=== PATIENT | male | born 1945 | race Caucasian/White ===

== ENCOUNTER 2018-01-25 07:42 | Outpatient (CLI) | payer MEDICARE, BC ==
--- NOTE | 2018-01-25 11:00 | CT ---
CT ANGIO ABDOMEN AND PELVIS AND BILATERAL LOWER EXTREMITIES WITH CONTRAST: INDICATIONS: Peripheral vascular disease with claudication. History of bilateral lower extremity stents. CORRELATION: CT angio study dated 08/28/2014. TECHNIQUE: Multiple axial tomograms obtained through the abdomen and pelvis and lower extremities following chantel ogram protocol with multiplanar reconstruction and 3D post processing. FINDINGS: The abdominal aorta shows atherosclerotic change with peripheral calcification and soft plaque periph erally. Mild ectasia. The distal abdominal aorta measures approximately 2 cm. No significant stenosis seen in the celiac artery. There is dense calcification at the origin of the superior mesenteric, with evidence of mild to moder ate stenosis. This appears to be less than 50% in diameter on the axial images. Dense calcification is seen at the origin of both renal arteries. There is evidence of significant s tenosis at the origin of both renal arteries. The degree of stenosis at both renal arteries appears greater than 50% diameter stenosis. Dense calcification at the aortic bifurcation and involving both common iliac arteries. There are bi lateral iliac artery stents, which have been placed since the prior study. Stents are patent. There is mild stenosis in the right common iliac, with some luminal narrowing within the stent, although t he degree of stenosis does not appear greater than 50%. RIGHT LOWER EXTREMITY: Significant atherosclerotic disease seen at the iliac bifurcation, involving internal and external iliacs. There is high grade stenosis in the right external iliac, just beyond its origin. Significant atherosclerotic disease is seen in the right common femoral, with evidence o f significant stenosis in the right common femoral of at least 50%. The right superficial femoral artery shows diffuse atherosclerotic change with moderate stenosis at H unter's canal. Diffuse atherosclerotic disease in the popliteal, with moderate stenosis at the joint space, nearing 50%. The popliteal trifurcates below the knee. Three vessels are seen to the ankle. LEFT LOWER EXTREMITY: Atherosclerotic disease involving the internal and external iliacs. Diffuse d isease in the external iliac with mild stenosis. Mild stenosis in the left common femoral. The left superficial femoral shows mild to moderate disease throughout, with focal stenosis at Ian 's canal, near 50% diameter. The popliteal shows moderate disease and moderate stenosis at the joint space. The popliteal trifurcates below the knee. Three vessels are seen to the ankle. SOFT TISSUES: The liver, spleen, and pancreas are unremarkable. The adrenal glands and kidneys are unremarkable. A right renal cyst is stable from prior exam. Bowel loops are unremarkable. IMPRESSION: 1. Diffuse atherosclerotic changes involving the abdominal aorta. There is evidence of significant stenosis of greater than 50% diameter, involving both proximal renal arteries. 2. The iliac stents appear patent with mild stenosis in the right iliac stent. 3. Significant stenosis in the right external iliac and right common femoral. 4. Moderate stenosis in both superficial femoral arteries, near Ian's canal. POS: OFF
== END 2018-01-25 07:43 | disposition home or self-care (01) ==
LOC: CT 07:42
PROVIDERS: ATTEND Internal Medicine Cardiovascular Disease
DX: I70.211 Atherosclerosis of native arteries of extremities with intermittent claudication, right leg (principal); I70.0 Atherosclerosis of aorta; I70.1 Atherosclerosis of renal artery; I70.8 Atherosclerosis of other arteries; I70.202 Unspecified atherosclerosis of native arteries of extremities, left leg; I70.201 Unspecified atherosclerosis of native arteries of extremities, right leg
CPT/HCPCS: 75635; 82565

== ENCOUNTER 2019-10-10 08:47 | Outpatient (CLI) | payer MEDICARE, BC ==
--- NOTE | 2019-10-10 09:55 | CT ---
CTA of the right lower extremity with IV contrast and Three-D reformatted imaging INDICATION: History of intermittent claudication of the right leg and COMPARISON: CTA of the abdomen and pelvis with bilateral lower extremity runoff dated January 25, 2018. FINDINGS: The right common iliac artery stent appears patent. There is moderate to severe narrowing involving t he origin of the right internal iliac which is stable. High-grade stenosis involving the proximal right external iliac artery is stable on image 43 of series 2. Moderate to severe calcified atheroscl erotic plaque in the right external iliac artery is stable. High-grade stenosis of the right external iliac just proximal to the femoral, image 61 of series 2 is stable. The moderate to high-gra de stenoses involving the right common femoral artery are stable. There is moderate atherosclerotic irregularity involving the right superficial femoral artery which is stable. The moderate to high-gra de stenosis involving the distal right superficial femoral artery at the level of the adductor hiatus is stable. Moderate atherosclerotic irregularity of the right popliteal artery with 50% lumina l caliber narrowing involving the proximal popliteal artery is stable. The anterior tibial artery and tibioperoneal trunk are patent proximally. There is 50% luminal caliber narrowing involving the d istal tibial peroneal trunk which is stable. There is three-vessel runoff to the level of the right ankle. There is a normal appendix in the right lower quadrant of the abdomen. There is diffuse osteop enia. There is scattered degenerative change. IMPRESSION: 1. Right common iliac artery stent appears patent. 2. Moderate to severe narrowing involving the right internal iliac artery is stable. 3. High-grade stenosis in the proximal and distal right external iliac artery is stable. 4. Multifocal moderate to severe stenoses involving the right common femoral artery is stable. 5. Moderate to high-grade stenosis involving the distal right superficial femoral artery at the level of the adductor hiatus is stable. 6. Moderate luminal caliber narrowing of the proximal right popliteal artery stable. 7. Moderate luminal caliber pleural narrowing of the distal tibial peroneal trunk is stable.
[2019-10-10] MEDS ORDERED: Iopamidol 370 76% 100 ML VIAL ONE (14:50)
== END 2019-10-10 08:48 | disposition home or self-care (01) ==
LOC: CT 08:47
PROVIDERS: ATTEND Internal Medicine Cardiovascular Disease
DX: I70.211 Atherosclerosis of native arteries of extremities with intermittent claudication, right leg (principal)
CPT/HCPCS: 82565; Q9967

== ENCOUNTER 2021-10-26 09:03 | Outpatient (CLI) | payer MEDICARE, BC | END 2021-10-26 09:04 | disposition home or self-care (01) | LOC: MRI 09:03 | PROVIDERS: ATTEND Family Medicine | DX: M48.062 Spinal stenosis, lumbar region with neurogenic claudication (principal); M47.26 Other spondylosis with radiculopathy, lumbar region | CPT/HCPCS: 72148 ==

== ENCOUNTER 2022-04-08 08:41 | Outpatient (CLI) | payer MEDICARE, BC ==
[~2022-04-08 08:41] MED LIST: Iopamidol 370 76% 100 ML VIAL ONE
== END 2022-04-08 08:42 | disposition home or self-care (01) ==
LOC: CT 08:41
PROVIDERS: ATTEND Internal Medicine Cardiovascular Disease
DX: I70.211 Atherosclerosis of native arteries of extremities with intermittent claudication, right leg (principal); N28.9 Disorder of kidney and ureter, unspecified; R59.0 Localized enlarged lymph nodes; R91.1 Solitary pulmonary nodule; I25.10 Atherosclerotic heart disease of native coronary artery without angina pectoris; I70.1 Atherosclerosis of renal artery; I70.0 Atherosclerosis of aorta; I70.8 Atherosclerosis of other arteries
CPT/HCPCS: 71275; 74175; 82565; Q9967

== ENCOUNTER 2022-04-20 10:20 | Outpatient (CLI) | payer MEDICARE, BC | END 2022-04-20 10:21 | disposition home or self-care (01) | LOC: LABBT 10:20 | PROVIDERS: ATTEND Internal Medicine Hematology & Oncology | DX: C78.1 Secondary malignant neoplasm of mediastinum (principal); C80.1 Malignant (primary) neoplasm, unspecified; Z20.822 Contact with and (suspected) exposure to COVID-19 | CPT/HCPCS: U0003; U0005 ==

== ENCOUNTER 2022-04-21 08:45 | Outpatient (CLI) | payer MEDICARE, BC | END 2022-04-21 08:46 | disposition home or self-care (01) | LOC: PET 08:45 | PROVIDERS: ATTEND Internal Medicine Hematology & Oncology | DX: C78.1 Secondary malignant neoplasm of mediastinum (principal) | CPT/HCPCS: 78815; A9552 ==

== ENCOUNTER 2022-04-25 07:56 | Day surgery (SDC) | payer MEDICARE, BC ==
[2022-04-20 14:25] VITALS: BMI 25.1
[2022-04-25 08:16] LABS: #Basophils 0.1 thou/uL (0.0-0.2); #Eosinphils 0.3 thou/uL (0.0-0.7); #Lymphocytes 1.7 thou/uL (1.20-3.40); #Monocytes 0.7 thou/uL (0.11-0.59); #Neutrophils 6.4 thou/uL (1.40-6.50); %Basophils 1.1 % (0.0-1.0); %Eosinophils 3.2 % (0.0-10.0); %Lymphocytes 18.6 % (21.0-51.0); %Monocytes 7.5 % (0.0-10.0); %Neutrophils 69.7 % (42.0-75.0); Hemoglobin 11.5 g/dL (14.0-18.0); Mean Corpuscular HGB CONC 32.2 g/dL (32.0-36.0); Mean Corpuscular Hemoglobin 26.8 pg (27.0-31.0); Mean Corpuscular Volume 83.3 fL (78.0-98.0); Mean Platelet Volume 6.4 fL (7.4-10.4); Platelet Count 390 thou/uL (130-400); RBC Distribution Width 13.9 % (11.5-14.5); White Blood Cell (WBC) Count 9.2 thou/uL (4.8-10.8)
[2022-04-25 08:27] LABS: INR-International Normal Ratio 1.1; PTT 32.4 sec (22.9-36.1); Prothrombin Time 14.1 sec (12.0-14.7)
[2022-04-25 08:39] VITALS: BP 191/101; TEMP 97.7
== END 2022-04-25 13:00 | disposition home or self-care (01) ==
LOC: CT 07:56
PROVIDERS: ATTEND Internal Medicine Hematology & Oncology
PROC: 0WBC3ZX Excision of Mediastinum, Percutaneous Approach, Diagnostic (ICD-10-PCS; principal; 2022-04-25)
DX: C7A.8 Other malignant neuroendocrine tumors (principal); I10 Essential (primary) hypertension; I25.10 Atherosclerotic heart disease of native coronary artery without angina pectoris; I73.9 Peripheral vascular disease, unspecified; E78.5 Hyperlipidemia, unspecified; N40.0 Benign prostatic hyperplasia without lower urinary tract symptoms; Z87.891 Personal history of nicotine dependence; Z79.82 Long term (current) use of aspirin; Z79.899 Other long term (current) drug therapy; Z95.5 Presence of coronary angioplasty implant and graft
CPT/HCPCS: 36415; 77002; 77012; 85025; 85610; 85730; 88305; 88313; 88333; 88341; 88342

== ENCOUNTER 2022-05-13 08:44 | Outpatient (CLI) | payer MEDICARE, BC ==
[~2022-05-13 08:44] MED LIST changes: +Gadobenate Dimeglumine 529 MG/1 ML (20ML VIAL) ONE; -Iopamidol 370 76% 100 ML VIAL ONE
== END 2022-05-13 08:45 | disposition home or self-care (01) ==
LOC: MRI 08:44
PROVIDERS: ATTEND Internal Medicine Hematology & Oncology
DX: C34.92 Malignant neoplasm of unspecified part of left bronchus or lung (principal); C78.1 Secondary malignant neoplasm of mediastinum; C79.51 Secondary malignant neoplasm of bone; I67.89 Other cerebrovascular disease; R90.89 Other abnormal findings on diagnostic imaging of central nervous system
CPT/HCPCS: 70553; A9577

== ENCOUNTER 2022-06-28 10:15 | Outpatient (CLI) | payer MEDICARE, BC | END 2022-06-28 10:16 | LOC: PET 10:15 | PROVIDERS: ATTEND Internal Medicine Hematology & Oncology | DX: C34.92 Malignant neoplasm of unspecified part of left bronchus or lung (principal); C78.1 Secondary malignant neoplasm of mediastinum | CPT/HCPCS: 78815; A9552 ==

== ENCOUNTER 2022-07-15 07:16 | Inpatient (IN) | payer MEDICARE, BC ==
[2022-07-15] MEDS ORDERED: Diltiazem 125 MG/25 ML ONE (07:34)
[2022-07-15] MEDS ORDERED: Ketorolac Tromethamine 30 MG/ML VIAL ONE (07:48)
[2022-07-15 07:55] LABS: Hemoglobin 7.9 g/dL (14.0-18.0); Mean Corpuscular HGB CONC 32.2 g/dL (32.0-36.0); Mean Corpuscular Hemoglobin 31.8 pg (27.0-31.0); Mean Corpuscular Volume 98.7 fL (78.0-98.0); Mean Platelet Volume 9.2 fL (7.4-10.4); Platelet Count 139 thou/uL (130-400); RBC Distribution Width 25.6 % (11.5-14.5); Red Blood Cell (RBC) Count 2.49 mill/uL (4.70-6.10); White Blood Cell (WBC) Count 5.4 thou/uL (4.8-10.8)
[2022-07-15 07:58] LABS: ALT (SGPT) 31 U/L (8-55); AST (SGOT) 24 U/L (5-34); Albumin 3.8 g/dL (3.4-4.8); Alkaline Phosphatase 73 U/L (40-110); Anion Gap 19 mmol/L (10-20); BUN (Urea Nitrogen) 39 mg/dL (8.4-25.7); Bilirubin, Total 0.7 mg/dL (0.2-1.2); Calc. Creatinine Clearance 0 mL/min (70-130); Calcium 8.8 mg/dL (7.8-10.44); Carbon Dioxide 16 mmol/L (23-31); Chloride 107 mmol/L (98-107); Estimated GFR 52; Globulin 2.4 g/dL (2.4-3.5); Glucose 237 mg/dL (83-110); Potassium 4.8 mmol/L (3.5-5.1); Protein, Total 6.2 g/dL (5.8-8.1); Sodium 137 mmol/L (136-145)
[2022-07-15] MEDS ORDERED: Furosemide 20 MG/2 ML VIAL ONE (08:01)
[2022-07-15] MEDS ORDERED: Furosemide 40 MG/4 ML VIAL ONE (08:01)
[2022-07-15 09:18] LABS: Anisocytosis MODERATE=16-30 cells (100X) (0-5/hpf); Band 33 % (5-11); Eosinophils 1 % (0-10); Lymphocytes 9 % (21-51); MDiff Complete? YES; Monocytes 9 % (0-10); Neutrophil 48 % (42-75); Platelet Morphology Comment Appears Adequate; Polychromasia SLIGHT = 2-3 cells (100X) (0-2/hpf); Schistocytes SLIGHT = 2-5 cells (100X) (0-1/hpf)
[2022-07-15] MEDS ORDERED: Non-Formulary Item 1 EACH (Albuterol Sulfate [Proair Digihaler] 90 MCG Aer.Pw.Bas) INH PRN (09:50)
[2022-07-15 11:43] VITALS: BMI 22.9
[2022-07-15] MEDS ORDERED: Acetaminophen 325 MG TAB PO PRN (12:00)
[2022-07-15] MEDS ORDERED: Bisacodyl 5 MG TAB PO PRN (12:00)
[2022-07-15] MEDS ORDERED: HYDROcodone/Acetaminophen 5/325 mg Tablet PO PRN ×2 (12:00)
[2022-07-15] MEDS ORDERED: Diltiazem HCl 125 MG in Premix Bag 1 BAG IVPB SCH (12:15)
[2022-07-15] MEDS: Furosemide 20 MG/2 ML VIAL SLOW IVP SCH (13:35)
[2022-07-15] MEDS: Atorvastatin Calcium 40 MG TAB PO SCH (21:00)
[2022-07-16] MEDS: Furosemide 20 MG/2 ML VIAL SLOW IVP SCH ×2 (05:36→14:31)
[2022-07-16 06:39] LABS: Anion Gap 15 mmol/L (10-20); BUN (Urea Nitrogen) 57 mg/dL (8.4-25.7); Calc. Creatinine Clearance 44 mL/min (70-130); Calcium 9.1 mg/dL (7.8-10.44); Carbon Dioxide 19 mmol/L (23-31); Chloride 108 mmol/L (98-107); Estimated GFR 51; Glucose 168 mg/dL (83-110); Sodium 137 mmol/L (136-145)
[2022-07-16 07:23] LABS: #Lymphocytes 0.5 thou/uL (1.20-3.40); #Monocytes 0.7 thou/uL (0.11-0.59); #Neutrophils 3.6 thou/uL (1.40-6.50); %Eosinophils 0.2 % (0.0-10.0); %Lymphocytes 10.6 % (21.0-51.0); %Monocytes 13.8 % (0.0-10.0); %Neutrophils 75.4 % (42.0-75.0); Anisocytosis SLIGHT = 6-15 cells (100X) (0-5/hpf); Helmet Cells SLIGHT = 2-5 cells (100X) (0-1/hpf); Hemoglobin 7.6 g/dL (14.0-18.0); Large Platelets SLIGHT; MDiff Complete? YES; Mean Corpuscular HGB CONC 31.5 g/dL (32.0-36.0); Mean Corpuscular Hemoglobin 30.3 pg (27.0-31.0); Mean Platelet Volume 11.2 fL (7.4-10.4); Ovalocytes SLIGHT = 2-5 cells (100X) (0-1/hpf); Platelet Count 88 thou/uL (130-400); Platelet Morphology Comment Appears Decreased; Polychromasia MODERATE = 3-4 cells (100X) (0-2/hpf); RBC Distribution Width 25.9 % (11.5-14.5); Red Blood Cell (RBC) Count 2.52 mill/uL (4.70-6.10); Schistocytes SLIGHT = 2-5 cells (100X) (0-1/hpf); Tear Drops SLIGHT = 2-5 cells (100X) (0-1/hpf); White Blood Cell (WBC) Count 4.8 thou/uL (4.8-10.8)
[2022-07-16] MEDS: Enoxaparin Sodium 40 MG/0.4 ML SYRINGE SC SCH (09:16)
[2022-07-16] MEDS: Aspirin 81 mg Enteric Coated Tablet PO SCH (09:16)
[2022-07-16] MEDS: Ezetimibe 10 MG TAB PO SCH (09:16)
[2022-07-16] MEDS: Albuterol Sulfate 2.5 mg/3 ml Neb NEB PRN (09:44)
[2022-07-16] MEDS: Atorvastatin Calcium 40 MG TAB PO SCH (20:24)
[2022-07-17] MEDS: Diltiazem 125 MG in Sodium Chloride 0.9% 100 ML IVPB SCH (01:38)
[2022-07-17] MEDS: Furosemide 20 MG/2 ML VIAL SLOW IVP SCH ×2 (05:24→15:30)
[2022-07-17] MEDS: Ezetimibe 10 MG TAB PO SCH (09:24)
[2022-07-17] MEDS: Aspirin 81 mg Enteric Coated Tablet PO SCH (09:24)
[2022-07-17] MEDS: Enoxaparin Sodium 40 MG/0.4 ML SYRINGE SC SCH (09:25)
[2022-07-17 09:57] LABS: #Lymphocytes 0.9 thou/uL (1.20-3.40); #Monocytes 0.8 thou/uL (0.11-0.59); #Neutrophils 5.4 thou/uL (1.40-6.50); %Basophils 0.2 % (0.0-1.0); %Lymphocytes 13.2 % (21.0-51.0); %Monocytes 10.6 % (0.0-10.0); Hemoglobin 7.8 g/dL (14.0-18.0); Mean Corpuscular HGB CONC 32.7 g/dL (32.0-36.0); Mean Corpuscular Hemoglobin 31.8 pg (27.0-31.0); Mean Corpuscular Volume 97.3 fL (78.0-98.0); Mean Platelet Volume 10.8 fL (7.4-10.4); Platelet Count 94 thou/uL (130-400); RBC Distribution Width 25.8 % (11.5-14.5); Red Blood Cell (RBC) Count 2.45 mill/uL (4.70-6.10); White Blood Cell (WBC) Count 7.1 thou/uL (4.8-10.8)
[2022-07-17 10:22] LABS: Anisocytosis MODERATE=16-30 cells (100X) (0-5/hpf); MDiff Complete? YES; Ovalocytes SLIGHT = 2-5 cells (100X) (0-1/hpf); Platelet Morphology Comment Appears Decreased; Polychromasia MODERATE = 3-4 cells (100X) (0-2/hpf); Schistocytes SLIGHT = 2-5 cells (100X) (0-1/hpf); Tear Drops SLIGHT = 2-5 cells (100X) (0-1/hpf)
[2022-07-17 10:45] LABS: ALT (SGPT) 59 U/L (8-55); AST (SGOT) 35 U/L (5-34); Albumin 3.9 g/dL (3.4-4.8); Alkaline Phosphatase 72 U/L (40-110); Anion Gap 17 mmol/L (10-20); BUN (Urea Nitrogen) 74 mg/dL (8.4-25.7); Bilirubin, Total 0.7 mg/dL (0.2-1.2); Calc. Creatinine Clearance 36 mL/min (70-130); Calcium 9.4 mg/dL (7.8-10.44); Carbon Dioxide 18 mmol/L (23-31); Chloride 106 mmol/L (98-107); Estimated GFR 41; Globulin 2.7 g/dL (2.4-3.5); Glucose 146 mg/dL (83-110); Magnesium 2.3 mg/dL (1.6-2.6); Phosphorus 4.9 mg/dL (2.3-4.7); Potassium 5.1 mmol/L (3.5-5.1); Protein, Total 6.6 g/dL (5.8-8.1); Sodium 136 mmol/L (136-145)
[2022-07-17] MEDS: Atorvastatin Calcium 40 MG TAB PO SCH (20:15)
[2022-07-18] MEDS: Furosemide 20 MG/2 ML VIAL SLOW IVP SCH (05:59)
[2022-07-18 07:01] LABS: #Eosinphils 0.1 thou/uL (0.0-0.7); #Lymphocytes 1.3 thou/uL (1.20-3.40); #Monocytes 0.7 thou/uL (0.11-0.59); #Neutrophils 8.4 thou/uL (1.40-6.50); %Basophils 0.2 % (0.0-1.0); %Eosinophils 0.8 % (0.0-10.0); %Lymphocytes 12.4 % (21.0-51.0); %Neutrophils 79.6 % (42.0-75.0); Hemoglobin 8.1 g/dL (14.0-18.0); Mean Corpuscular HGB CONC 35.3 g/dL (32.0-36.0); Mean Corpuscular Hemoglobin 33.9 pg (27.0-31.0); Mean Corpuscular Volume 96.2 fL (78.0-98.0); Mean Platelet Volume 11.2 fL (7.4-10.4); Platelet Count 68 thou/uL (130-400); RBC Distribution Width 26.1 % (11.5-14.5); Red Blood Cell (RBC) Count 2.38 mill/uL (4.70-6.10); White Blood Cell (WBC) Count 10.5 thou/uL (4.8-10.8)
[2022-07-18 07:15] LABS: ALT (SGPT) 75 U/L (8-55); AST (SGOT) 42 U/L (5-34); Albumin 3.8 g/dL (3.4-4.8); Alkaline Phosphatase 74 U/L (40-110); Anion Gap 22 mmol/L (10-20); BUN (Urea Nitrogen) 91 mg/dL (8.4-25.7); Bilirubin, Total 0.9 mg/dL (0.2-1.2); Calc. Creatinine Clearance 30 mL/min (70-130); Calcium 9.4 mg/dL (7.8-10.44); Carbon Dioxide 14 mmol/L (23-31); Chloride 106 mmol/L (98-107); Estimated GFR 32; Globulin 2.8 g/dL (2.4-3.5); Glucose 152 mg/dL (83-110); Potassium 5.2 mmol/L (3.5-5.1); Protein, Total 6.6 g/dL (5.8-8.1); Sodium 137 mmol/L (136-145)
[2022-07-18] MEDS: Enoxaparin Sodium 40 MG/0.4 ML SYRINGE SC SCH (08:48)
[2022-07-18] MEDS: Ezetimibe 10 MG TAB PO SCH (09:25)
[2022-07-18] MEDS: Aspirin 81 mg Enteric Coated Tablet PO SCH (09:25)
[2022-07-18] MEDS: Albuterol Sulfate 2.5 mg/3 ml Neb NEB PRN (10:31)
[2022-07-18 14:25] LABS: Troponin I 3.028 ng/mL (< 0.028)
[2022-07-18] MEDS: Atorvastatin Calcium 40 MG TAB PO SCH (20:29)
[2022-07-18 22:08] LABS: Critical Call Chem Troponin I RESULT DECREASING; Troponin I 2.966 ng/mL (< 0.028)
[2022-07-19] MEDS: Diltiazem 125 MG in Sodium Chloride 0.9% 100 ML IVPB SCH (04:22)
[2022-07-19 05:12] LABS: ALT (SGPT) 74 U/L (8-55); AST (SGOT) 37 U/L (5-34); Albumin 3.8 g/dL (3.4-4.8); Alkaline Phosphatase 77 U/L (40-110); Anion Gap 14 mmol/L (10-20); BUN (Urea Nitrogen) 85 mg/dL (8.4-25.7); Bilirubin, Total 1.1 mg/dL (0.2-1.2); Calc. Creatinine Clearance 37 mL/min (70-130); Calcium 9.1 mg/dL (7.8-10.44); Carbon Dioxide 21 mmol/L (23-31); Chloride 104 mmol/L (98-107); Estimated GFR 42; Globulin 2.6 g/dL (2.4-3.5); Glucose 134 mg/dL (83-110); Potassium 4.3 mmol/L (3.5-5.1); Protein, Total 6.4 g/dL (5.8-8.1); Sodium 135 mmol/L (136-145)
[2022-07-19 05:43] LABS: Anisocytosis MODERATE=16-30 cells (100X) (0-5/hpf); Band 19 % (5-11); Elliptocytes SLIGHT = 2-5 cells (100X) (0-1/hpf); Hemoglobin 7.8 g/dL (14.0-18.0); Lymphocytes 11 % (21-51); MDiff Complete? YES; Macrocytosis SLIGHT = 6-15 cells (100X) (0-5/hpf); Mean Corpuscular HGB CONC 32.3 g/dL (32.0-36.0); Mean Corpuscular Hemoglobin 31.6 pg (27.0-31.0); Mean Corpuscular Volume 97.6 fL (78.0-98.0); Mean Platelet Volume 5.9 fL (7.4-10.4); Monocytes 4 % (0-10); Neutrophil 66 % (42-75); Platelet Count 73 thou/uL (130-400); Platelet Morphology Comment Appears Decreased; RBC Distribution Width 27.7 % (11.5-14.5); Red Blood Cell (RBC) Count 2.46 mill/uL (4.70-6.10); Schistocytes SLIGHT = 2-5 cells (100X) (0-1/hpf); Toxic Granulation SLIGHT; White Blood Cell (WBC) Count 10.6 thou/uL (4.8-10.8)
[2022-07-19] MEDS: Ezetimibe 10 MG TAB PO SCH (09:15)
[2022-07-19] MEDS: Aspirin 81 mg Enteric Coated Tablet PO SCH (09:16)
[2022-07-19] MEDS ORDERED: Diltiazem 125 MG in Sodium Chloride 0.9% 100 ML IVPB SCH (17:37)
[2022-07-19] MEDS: Atorvastatin Calcium 40 MG TAB PO SCH (20:34)
[2022-07-20 05:25] LABS: ALT (SGPT) 71 U/L (8-55); AST (SGOT) 35 U/L (5-34); Albumin 3.9 g/dL (3.4-4.8); Alkaline Phosphatase 91 U/L (40-110); Anion Gap 15 mmol/L (10-20); BUN (Urea Nitrogen) 83 mg/dL (8.4-25.7); Bilirubin, Total 1.2 mg/dL (0.2-1.2); Calc. Creatinine Clearance 38 mL/min (70-130); Calcium 9.4 mg/dL (7.8-10.44); Carbon Dioxide 21 mmol/L (23-31); Chloride 104 mmol/L (98-107); Estimated GFR 43; Globulin 2.9 g/dL (2.4-3.5); Glucose 136 mg/dL (83-110); Potassium 4.4 mmol/L (3.5-5.1); Protein, Total 6.8 g/dL (5.8-8.1); Sodium 136 mmol/L (136-145)
[2022-07-20 06:04] LABS: Band 19 % (5-11); Hemoglobin 8.3 g/dL (14.0-18.0); Lymphocytes 12 % (21-51); MDiff Complete? YES; Mean Corpuscular Hemoglobin 33.2 pg (27.0-31.0); Mean Corpuscular Volume 97.4 fL (78.0-98.0); Mean Platelet Volume 11.8 fL (7.4-10.4); Monocytes 8 % (0-10); Neutrophil 61 % (42-75); Nucleated RBC 1 % (0); Platelet Count 75 thou/uL (130-400); Platelet Morphology Comment Appears Decreased; RBC Distribution Width 28.2 % (11.5-14.5)
[2022-07-20] MEDS: Ezetimibe 10 MG TAB PO SCH (08:29)
[2022-07-20] MEDS: Aspirin 81 mg Enteric Coated Tablet PO SCH (08:29)
[2022-07-20] MEDS: Empagliflozin 10 MG TAB PO SCH (08:29)
[2022-07-20] MEDS ORDERED: Furosemide 20 MG/2 ML VIAL SLOW IVP SCH ×2 (10:00→14:00)
[2022-07-20] MEDS: Atorvastatin Calcium 40 MG TAB PO SCH (20:50)
[2022-07-21 05:05] LABS: #Lymphocytes 1.6 thou/uL (1.20-3.40); #Monocytes 0.8 thou/uL (0.11-0.59); #Neutrophils 7.3 thou/uL (1.40-6.50); %Basophils 0.1 % (0.0-1.0); %Eosinophils 0.2 % (0.0-10.0); %Lymphocytes 16.5 % (21.0-51.0); %Monocytes 7.7 % (0.0-10.0); %Neutrophils 75.6 % (42.0-75.0); Hemoglobin 7.3 g/dL (14.0-18.0); Mean Corpuscular HGB CONC 32.6 g/dL (32.0-36.0); Mean Corpuscular Hemoglobin 32.5 pg (27.0-31.0); Mean Corpuscular Volume 99.8 fL (78.0-98.0); Mean Platelet Volume 11.3 fL (7.4-10.4); Platelet Count 89 thou/uL (130-400); RBC Distribution Width 29.2 % (11.5-14.5); Red Blood Cell (RBC) Count 2.25 mill/uL (4.70-6.10); White Blood Cell (WBC) Count 9.7 thou/uL (4.8-10.8)
[2022-07-21 05:20] LABS: ALT (SGPT) 55 U/L (8-55); AST (SGOT) 30 U/L (5-34); Albumin 3.4 g/dL (3.4-4.8); Alkaline Phosphatase 75 U/L (40-110); Anion Gap 16 mmol/L (10-20); BUN (Urea Nitrogen) 68 mg/dL (8.4-25.7); Bilirubin, Total 1.5 mg/dL (0.2-1.2); Calc. Creatinine Clearance 42 mL/min (70-130); Calcium 9.1 mg/dL (7.8-10.44); Carbon Dioxide 20 mmol/L (23-31); Chloride 104 mmol/L (98-107); Estimated GFR 50; Globulin 2.7 g/dL (2.4-3.5); Glucose 123 mg/dL (83-110); Potassium 4.5 mmol/L (3.5-5.1); Protein, Total 6.1 g/dL (5.8-8.1); Sodium 135 mmol/L (136-145)
[2022-07-21] MEDS: Empagliflozin 10 MG TAB PO SCH (09:10)
[2022-07-21] MEDS: Ezetimibe 10 MG TAB PO SCH (09:10)
[2022-07-21] MEDS: Aspirin 81 mg Enteric Coated Tablet PO SCH (09:10)
[2022-07-21] MEDS ORDERED: Furosemide 20 MG TAB PO SCH (13:30)
[2022-07-21] MEDS: Atorvastatin Calcium 40 MG TAB PO SCH (20:16)
[2022-07-22 04:44] LABS: ALT (SGPT) 47 U/L (8-55); AST (SGOT) 29 U/L (5-34); Albumin 3.5 g/dL (3.4-4.8); Alkaline Phosphatase 77 U/L (40-110); Anion Gap 12 mmol/L (10-20); BUN (Urea Nitrogen) 59 mg/dL (8.4-25.7); Bilirubin, Total 1.4 mg/dL (0.2-1.2); Calc. Creatinine Clearance 43 mL/min (70-130); Calcium 9.1 mg/dL (7.8-10.44); Carbon Dioxide 23 mmol/L (23-31); Chloride 105 mmol/L (98-107); Estimated GFR 52; Globulin 3.1 g/dL (2.4-3.5); Glucose 132 mg/dL (83-110); Potassium 4.1 mmol/L (3.5-5.1); Protein, Total 6.6 g/dL (5.8-8.1); Sodium 136 mmol/L (136-145)
[2022-07-22 05:19] LABS: #Lymphocytes 1.6 thou/uL (1.20-3.40); #Monocytes 0.9 thou/uL (0.11-0.59); #Neutrophils 7.8 thou/uL (1.40-6.50); %Eosinophils 0.3 % (0.0-10.0); %Lymphocytes 15.7 % (21.0-51.0); %Monocytes 8.6 % (0.0-10.0); %Neutrophils 75.4 % (42.0-75.0); Anisocytosis MODERATE=16-30 cells (100X) (0-5/hpf); Hemoglobin 8.6 g/dL (14.0-18.0); MDiff Complete? YES; Macrocytosis SLIGHT = 6-15 cells (100X) (0-5/hpf); Mean Corpuscular HGB CONC 32.8 g/dL (32.0-36.0); Mean Corpuscular Hemoglobin 32.9 pg (27.0-31.0); Mean Platelet Volume 10.7 fL (7.4-10.4); Platelet Count 120 thou/uL (130-400); Platelet Morphology Comment Appears Decreased; Red Blood Cell (RBC) Count 2.61 mill/uL (4.70-6.10); Schistocytes SLIGHT = 2-5 cells (100X) (0-1/hpf); Toxic Granulation SLIGHT; White Blood Cell (WBC) Count 10.3 thou/uL (4.8-10.8)
[2022-07-22] MEDS: Aspirin 81 mg Enteric Coated Tablet PO SCH (08:31)
[2022-07-22] MEDS: Ezetimibe 10 MG TAB PO SCH (08:31)
[2022-07-22] MEDS: Empagliflozin 10 MG TAB PO SCH (08:32)
[2022-07-22] MEDS ORDERED: Furosemide 20 MG TAB PO SCH (09:00)
[2022-07-22 12:13] VITALS: BP 115/58; TEMP 97.3
== END 2022-07-22 13:00 | disposition home or self-care (01) | DRG 280 ==
LOC: ERS 07:16 → 2NO 11:01
PROVIDERS: ADMIT Internal Medicine; ATTEND Family Medicine
DX: I48.0 Paroxysmal atrial fibrillation (principal); J96.01 Acute respiratory failure with hypoxia; I21.4 Non-ST elevation (NSTEMI) myocardial infarction; C34.90 Malignant neoplasm of unspecified part of unspecified bronchus or lung; N17.9 Acute kidney failure, unspecified; I50.22 Chronic systolic (congestive) heart failure; D61.818 Other pancytopenia; Z20.822 Contact with and (suspected) exposure to COVID-19; J44.9 Chronic obstructive pulmonary disease, unspecified; I73.9 Peripheral vascular disease, unspecified; D64.9 Anemia, unspecified; I11.0 Hypertensive heart disease with heart failure; I44.7 Left bundle-branch block, unspecified; I34.0 Nonrheumatic mitral (valve) insufficiency; M10.9 Gout, unspecified; E78.00 Pure hypercholesterolemia, unspecified; I25.5 Ischemic cardiomyopathy; I48.92 Unspecified atrial flutter; G62.9 Polyneuropathy, unspecified; Z79.899 Other long term (current) drug therapy; Z79.82 Long term (current) use of aspirin; Z86.73 Personal history of transient ischemic attack (TIA), and cerebral infarction without residual deficits; Z95.5 Presence of coronary angioplasty implant and graft; Z82.49 Family history of ischemic heart disease and other diseases of the circulatory system; Z87.891 Personal history of nicotine dependence
CPT/HCPCS: 36415; 36416; 71045; 71046; 80048; 80053; 83735; 83880; 84100; 84145; 84484; 85025; 86140; 87811; 93005; 93010; 93306; 94640; 94760; 96374; 96375; J1650; J1885; J1940; J3490; J7611; U0003; U0005

== ENCOUNTER 2022-11-28 09:42 | Outpatient (CLI) | payer MEDICARE, BC | END 2022-11-28 09:43 | disposition home or self-care (01) | LOC: MRI 09:42 | PROVIDERS: ATTEND Radiology Radiation Oncology | DX: C34.90 Malignant neoplasm of unspecified part of unspecified bronchus or lung (principal); C79.51 Secondary malignant neoplasm of bone; G93.89 Other specified disorders of brain | CPT/HCPCS: 70553 ==

== ENCOUNTER 2023-01-10 12:30 | Outpatient (CLI) | payer MEDICARE, BC | END 2023-01-10 12:31 | disposition home or self-care (01) | LOC: PET 12:30 | PROVIDERS: ATTEND Internal Medicine Hematology & Oncology | DX: C34.92 Malignant neoplasm of unspecified part of left bronchus or lung (principal); C78.1 Secondary malignant neoplasm of mediastinum; C79.51 Secondary malignant neoplasm of bone; C71.9 Malignant neoplasm of brain, unspecified; D50.8 Other iron deficiency anemias; R94.8 Abnormal results of function studies of other organs and systems | CPT/HCPCS: 78815; A9552 ==

== ENCOUNTER 2023-03-06 12:48 | Outpatient (CLI) | payer MEDICARE, BC ==
[~2023-03-06 12:48] MED LIST changes: -Gadobenate Dimeglumine 529 MG/1 ML (20ML VIAL) ONE; +Iopamidol 370 76% 100 ML VIAL ONE
== END 2023-03-06 12:49 | disposition home or self-care (01) ==
LOC: CT 12:48
PROVIDERS: ATTEND Internal Medicine Hematology & Oncology
DX: C34.92 Malignant neoplasm of unspecified part of left bronchus or lung (principal); C78.1 Secondary malignant neoplasm of mediastinum; C79.71 Secondary malignant neoplasm of right adrenal gland; Z96.0 Presence of urogenital implants
CPT/HCPCS: 74177; 82565; Q9967

== ENCOUNTER 2023-03-20 12:26 | Outpatient (CLI) | payer MEDICARE, BC ==
[~2023-03-20 12:26] MED LIST changes: -Iopamidol 370 76% 100 ML VIAL ONE; +Magnevist 469MG/ML 20 ML VIAL ONE
== END 2023-03-20 12:27 | disposition home or self-care (01) ==
LOC: TBSIIMAG 12:26
PROVIDERS: ATTEND Radiology Radiation Oncology
DX: C79.31 Secondary malignant neoplasm of brain (principal)
CPT/HCPCS: 70553; A9579

== ENCOUNTER 2023-05-30 08:49 | Outpatient (CLI) | payer MEDICARE, BC ==
[2023-05-30] MEDS ORDERED: Iopamidol 370 76% 100 ML VIAL ONE (09:27)
== END 2023-05-30 08:50 | disposition home or self-care (01) ==
LOC: CT 08:49
PROVIDERS: ATTEND Internal Medicine Hematology & Oncology
DX: C78.1 Secondary malignant neoplasm of mediastinum (principal); C34.92 Malignant neoplasm of unspecified part of left bronchus or lung
CPT/HCPCS: 71260; 74177; Q9967

== ENCOUNTER 2023-06-22 10:15 | Outpatient (CLI) | payer MEDICARE, BC ==
[2023-06-22] MEDS ORDERED: Magnevist 469MG/ML 20 ML VIAL ONE (10:55)
== END 2023-06-22 10:16 | disposition home or self-care (01) ==
LOC: MRI 10:15
PROVIDERS: ATTEND Radiology Radiation Oncology
DX: C79.51 Secondary malignant neoplasm of bone (principal); I67.82 Cerebral ischemia
CPT/HCPCS: 70553

== ENCOUNTER 2023-08-14 17:43 | Inpatient (IN) | payer OTHER ==
[2023-08-14] MEDS ORDERED: Morphine 2 MG/ML VIAL SLOW IVP PRN (17:57)
[2023-08-14] MEDS ORDERED: Lorazepam 2 MG/ML VIAL SLOW IVP PRN (17:57)
[2023-08-14] MEDS ORDERED: Atropine Sulfate 1% Ophth Soln 5 ml Bottle SL PRN (17:59)
[2023-08-14] MEDS: Morphine 2 MG/ML VIAL SLOW IVP SCH ×3 (18:07→22:34)
[2023-08-15] MEDS: Morphine 2 MG/ML VIAL SLOW IVP SCH ×3 (03:06→04:55)
[2023-08-16] MEDS ORDERED: Scopolamine 1.5 mg/72 hour Patch TOP SCH (21:00)
== END 2023-08-15 12:41 | disposition expired | DRG 951 ==
LOC: 2NO 17:43
PROVIDERS: ADMIT Student in an Organized Health Care Education/Training Program; ATTEND Family Medicine
DX: Z51.5 Encounter for palliative care (principal); G93.41 Metabolic encephalopathy; I50.23 Acute on chronic systolic (congestive) heart failure; I21.4 Non-ST elevation (NSTEMI) myocardial infarction; N17.9 Acute kidney failure, unspecified; C34.90 Malignant neoplasm of unspecified part of unspecified bronchus or lung; E87.0 Hyperosmolality and hypernatremia; E03.9 Hypothyroidism, unspecified; I48.91 Unspecified atrial fibrillation; D64.9 Anemia, unspecified; I25.10 Atherosclerotic heart disease of native coronary artery without angina pectoris; N40.0 Benign prostatic hyperplasia without lower urinary tract symptoms
CPT/HCPCS: J2272